=== PATIENT | male | born 1965 | race African-American/Black ===

== ENCOUNTER 2017-11-30 09:32 | Inpatient (IN) | payer OTHER ==
[2017-11-30 10:16] VITALS: BMI 27.2
--- NOTE | 2017-11-30 11:22 | HP ---
CIWA Score - CIWA Score Nausea/Vomitin-No Nausea/No Vomiting Muscle Tremors: 4-Moderate,w/Arms Extend Anxiety: 4-Mod. Anxious/Guarded Agitation: 4-Moderately Restless Paroxysmal Sweats: 3 Orientation: 0-Oriented Tacttile Disturbances: 0-None Auditory Disturbances: 0-None Visual Disturbances: 0-None Headache: 0-None Present CIWA-Ar Total Score: 15 Admission ROS S - HPI Chief Complaint: I was clean for a while until I relapsed and starting drinking a fifth of vodka daily. I need help. Allergies/Adverse Reactions: Allergies Allergy/AdvReac Type Severity Reaction Status Date / Time No Known Allergies Allergy Verified 11/30/17 10:32 History of Present Illness: pt is a 52yr old male with a history of alcohol dependence seeking detox for treatment. Pt had sober for 7months until a month ago when he relapsed. Exam Limitations: No Limitations - Ebola screening Have you traveled outside of the country in the last 21 days: No Have you had contact with anyone from an Ebola affected area: No Have you been sick,other than usual withdrawal symptoms: No - Review of Systems Constitutional: Diaphoresis, Loss of Appetite, Night Sweats, Changes in sleep, Unintentional Wgt. Loss EENT: reports: Tearing Respiratory: reports: No Symptoms reported Cardiac: reports: Syncope GI: reports: Poor Appetite, Poor Fluid Intake : reports: No Symptoms Reported Musculoskeletal: reports: No Symptoms Reported Integumentary: reports: Flushing, Sweating Neuro: reports: Tingling, Tremors Endocrine: reports: Flushing, Intolerance to Cold, Intolerance to Heat Hematology: reports: No Symptoms Reported Psychiatric: reports: Judgement Intact, Mood/Affect Appropiate, Orientated x3, Agitated, Anxious Other Systems: Reviewed and Negative Patient History - Patient Medical History Hx Anemia: No Hx Asthma: No Hx Chronic Obstructive Pulmonary Disease (COPD): No Hx Cancer: No Hx Cardiac Disorders: No Hx Congestive Heart Failure: No Hx Hypertension: Yes Hx Hypercholesterolemia: No Hx Pacemaker: No HX Cerebrovascular Accident: No Hx Seizures: No Hx Dementia: No Hx Diabetes: No Hx Gastrointestinal Disorders: No Hx Liver Disease: No Hx Genitourinary Disorders: No Hx Sexually Transmitted Disorders: No Hx Renal Disease (ESRD): No Hx Thyroid Disease: No Hx Human Immunodeficiency Virus (HIV): No (negative) Hx Hepatitis C: No (negative) Hx Depression: Yes (prozac non compliant) Hx Suicide Attempt: No Hx Bipolar Disorder: No Hx Schizophrenia: No - Patient Surgical History Past Surgical History: Yes Hx Neurologic Surgery: No Hx Cataract Extraction: No Hx Cardiac Surgery: No Hx Lung Surgery: No Hx Breast Surgery: No Hx Breast Biopsy: No Hx Abdominal Surgery: Yes (umbilical hernia at age 8) Hx Appendectomy: No Hx Cholecystectomy: No Hx Genitourinary Surgery: No Hx Section: No Hx Orthopedic Surgery: No Anesthesia Reaction: No - PPD History Previous Implant?: Yes Documented Results: Negative w/o proof Implanted On Prior R Admission?: No PPD to be Administered?: Yes - Reproductive History Patient is a Female of Child Bearing Age (11 -55 yrs old): No - Smoking Cessation Smoking history: Former smoker Have you smoked in the past 12 months: No If you are a former smoker, when did you quit?: 2016 Hx Chewing Tobacco Use: No Initiated information on smoking cessation: No 'Breaking Loose' booklet given: 11/30/17 - Substance & Tx. History Hx Alcohol Use: Yes Substance Use Type: Alcohol Hx Substance Use Treatment: Yes (last detox 1.5month ago [facility]) - Substances Abused Alcohol-vodka Route: Oral Frequency: Daily Amount used: 2 pts vodka Age of first use: 21 Date of Last Use: 11/28/17 Family Disease History - Family Disease History Family Disease History: CA: Mother (in remission), Other: Father (alcohol/ ) Admission Physical Exam [facility] - Vital Signs Vital Signs: Vital Signs - 24 hr 11/30/17 10:01 Temperature 97.7 F Pulse Rate 91 H Respiratory 18 Rate Blood Pressure 188/113 H - Physical General Appearance: Yes: Appropriately Dressed, Moderate Distress, Tremorous, Irritable, Sweating, Anxious HEENTM: Yes: Normal Voice, Nasal Congestion, Rhinorrhea Respiratory: Yes: Lungs Clear, Normal Breath Sounds, No Respiratory Distress Neck: Yes: No masses,lesions,Nodules Breast: Yes: Within Normal Limits Cardiology: Yes: Regular Rhythm, Regular Rate, S1, S2, Tachycardia Abdominal: Yes: Normal Bowel Sounds Genitourinary: Yes: Within Normal Limits Back: Yes: Normal Inspection Musculoskeletal: Yes: full range of Motion Extremities: Yes: Tremors Neurological: Yes: Fully Oriented, Alert, Normal Response Integumentary: Yes: Diaphoresis Lymphatic: Yes: Within Normal Limits - Diagnostic (1) Alcohol dependence with uncomplicated withdrawal Current Visit: Yes Status: Chronic (2) Hypertension Current Visit: Yes Status: Chronic Qualifiers: Hypertension type: essential hypertension Qualified Code(s): I10 - Essential (primary) hypertension Cleared for Admission [facility] - Detox or Rehab [facility] Level of Care: Medically Managed Detox Regimen/Protocol: Librium S Breath Alcohol Content Breath Alcohol Content: 0 Urine Drug Screen - Results Drug Screen Negative: No Urine Drug Screen Results: MDMA-Ecstasy, BZO-Benzodiazepines
[2017-11-30] MEDS ORDERED: guaiFENesin/D-METHORPHAN HB 10 ML UNIT-DOSE CUPS PO PRN (11:33)
[2017-11-30] MEDS ORDERED: MAGNESIUM CITRATE 300 ML BOTTLE PO PRN (11:33)
[2017-11-30] MEDS ORDERED: MAG HYDROX/AL HYDROX/SIMETH 30 ML UNIT-DOSE CUP PO PRN (11:33)
[2017-11-30] MEDS ORDERED: IBUPROFEN 400 MG TABLET (FP) PO PRN (11:33)
[2017-11-30] MEDS ORDERED: ACETAMINOPHEN 325 MG TABLET (FP) PO PRN (11:33)
[2017-11-30] MEDS ORDERED: hydrOXYzine PAMOATE 50 MG CAPSULE (FP) PO PRN (11:33)
[2017-11-30] MEDS ORDERED: MENTHOL/PHENOL 1 EACH UD MM PRN (11:33)
[2017-11-30] MEDS ORDERED: chlordiazePOXIDE HCL 25 MG CAPSULE PO PRN (11:33)
[2017-11-30] MEDS ORDERED: MAGNESIUM HYDROX 2400MG/30ML ORAL SUSPENSION 30 ML CUP PO PRN (11:33)
[2017-11-30] MEDS ORDERED: P-EPHED 60MG/TRIPROLIDI 2.5MG TABLET PO PRN (11:33)
[2017-11-30] MEDS ORDERED: LOPERAMIDE HCL 2 MG CAPSULE PO PRN (11:33)
[2017-11-30] MEDS ORDERED: chlordiazePOXIDE HCL 25 MG CAPSULE PO ONE (12:05)
[2017-11-30] MEDS: amLODIPine BESYLATE 10 MG TABLET (FP) PO SCH (13:09)
[2017-11-30] MEDS: hydrALAZINE HCL 50 MG TABLET (FP) PO SCH ×2 (13:55→22:02)
[2017-11-30] MEDS: chlordiazePOXIDE HCL 25 MG CAPSULE PO SCH ×2 (17:19→22:02)
[2017-11-30] MEDS ORDERED: cloNIDine HCL 0.1 MG TABLET PO ONE (17:45)
[2017-11-30] MEDS ORDERED: MELATONIN 5 MG TABLETS PO PRN (22:00)
[2017-11-30] MEDS ORDERED: PATIENT'S OWN MEDICATION (NON-FORMULARY) (Labetalol Hcl [Labetalol Hcl] 300 MG) PO SCH (22:00)
[2017-11-30] MEDS: THIAMINE HCL 100 MG TABLET (FP) PO SCH (22:02)
[2017-11-30] MEDS: LABETALOL HCL 100 MG, LABETALOL HCL 200 MG PO SCH (22:02)
[2017-12-01] MEDS: chlordiazePOXIDE HCL 25 MG CAPSULE PO SCH ×4 (06:14→22:15)
--- NOTE | 2017-12-01 08:52 | CONSULT ---
[facility] Psychiatric Consult - Data Date of interview: 12/01/17 Admission source: [facility] Identifying data: This is 52 years old male, single father of two, unemployed, homeless, with psychiatric hospitalization history, reports long history of Alcoho ddependence, reports Alcohol withdrawal symptoms and seeking detox. Denies suicidal and homicidal history. Substance Abuse History: - Smoking Cessation. Smoking history: Current every day smoker. Have you smoked in the past 12 months: Yes. Aproximately how many cigarettes per day: 20. Cigars Per Day: 0. Hx Chewing Tobacco Use: No. Initiated information on smoking cessation: Yes. 'Breaking Loose' booklet given : 11/30/17. - Substance & Tx. History. Hx Alcohol Use: Yes. Hx Substance Use : Yes. Substance Use Type: Alcohol, Tranquilizers. Hx Substance Use Treatment : Yes ([facility] detox one month ago ). - Substances Abused. Alcohol. Route: Oral. Frequency: Daily. Amount used: LIQUOR- 3 PINTS, BEER- 2 SIX PACK. Age of first use: 14. Date of Last Use: 11/30/17. Alprazolam (Xanax). Route: Oral. Frequency: Daily. Amount used: 2mg. Age of first use: 54. Date of Last Use: 11/28/17 Medical History: HTN Psychiatric History: Patient reports history of Anxiety, : that is why I am drinking Alcohol". Reports unclear psychiatric admission on 2018, one month ago at [facility]. Denies suicidal and homicidal history. Reportsm taking prior to admission: Vistaril 100mg pom bid Physical/Sexual Abuse/Trauma History: Denies Additional Comment: Vistaril 100mg pom bid Mental Status Exam - Mental Status Exam Alert and Oriented to: Person Cognitive Function: Fair Patient Appearance: Unkempt Mood: Sad Affect: Flat Patient Behavior: Sedated Speech Pattern: Delayed Voice Loudness: Mildly Soft/Quiet Thought Process: Circumstantial Thought Disorder: Being Controlled Hallucinations: Denies Suicidal Ideation: Denies Homicidal Ideation: Denies Insight/Judgement: Fair Sleep: Difficulty falling asleep Muscle strength/Tone: Moderate Hypertonicity Gait/Station: Shuffling Additional Comments: Vistaril 100mg pom bid Psychiatric Findings - Problem List ([place] 1, 2,3) (1) Alcohol-induced anxiety disorder Current Visit: Yes Status: Acute (2) Alcohol dependence with uncomplicated withdrawal Current Visit: Yes Status: Chronic (3) Hypertension Current Visit: Yes Status: Chronic Qualifiers: Hypertension type: essential hypertension Qualified Code(s): I10 - Essential (primary) hypertension - Initial Treatment Plan Initial Treatment Plan: Vistaril 100mg po bid
--- NOTE | 2017-12-01 09:52 | EKG ---
Test Reason : Blood Pressure : / mmHG Vent. Rate : 084 BPM Atrial Rate : 084 BPM P-R Int : 140 ms QRS Dur : 076 ms QT Int : 382 ms P-R-T Axes : 078 -08 030 degrees QTc Int : 451 ms NORMAL SINUS RHYTHM NORMAL ECG NO PREVIOUS ECGS AVAILABLE Confirmed by LU PYLE, ELIAS ([id number]) on 12/01/2017 9:51:55 AM Referred By: Confirmed By:ELIAS LEIGH MD
[2017-12-01 10:01] LABS: HEMATOCRIT 45.6 % (35.4-49); HEMOGLOBIN 14.7 GM/dL (11.7-16.9); MCH 25.6 pg (25.7-33.7); MCHC 32.2 g/dl (32.0-35.9); MEAN CELL VOLUME 79.6 fl (80-96); MEAN PLT VOLUME 8.2 fl (7.5-11.1); PLATELET COUNT 263 K/MM3 (134-434); RBC 5.73 M/mm3 (4.00-5.60); RDW 16.5 % (11.9-15.9); WHITE BLOOD COUNT 4.9 K/mm3 (4.0-10.0)
[2017-12-01] MEDS: PRENATAL VITAMINS W/ FOLIC ACID TABLET (FP) PO SCH (10:12)
[2017-12-01] MEDS: hydrALAZINE HCL 50 MG TABLET (FP) PO SCH ×2 (10:12→22:14)
[2017-12-01] MEDS: amLODIPine BESYLATE 10 MG TABLET (FP) PO SCH (10:13)
[2017-12-01] MEDS: LABETALOL HCL 100 MG, LABETALOL HCL 200 MG PO SCH ×2 (10:13→22:14)
[2017-12-01] MEDS: hydrOXYzine PAMOATE 50 MG CAPSULE (FP) PO SCH ×2 (10:15→22:15)
[2017-12-01 10:48] LABS: ALBUMIN 4.4 g/dl (3.4-5.0); ALK PHOS 97 U/L (45-117); ANION GAP 10 MMOL/L (8-16); BLOOD UREA NITROGEN 8 mg/dL (7-18); CALCIUM 9.5 mg/dL (8.5-10.1); CHLORIDE 99 mmol/L (98-107); CO2 25 mmol/L (21-32); GLUCOSE,RANDOM 118 mg/dL (74-106); POTASSIUM 3.9 mmol/L (3.5-5.1); SGOT/AST 46 U/L (15-37); SGPT/ALT 43 U/L (13-61); SODIUM 134 mmol/L (136-145); TOT PROT 8.6 g/dl (6.4-8.2)
--- NOTE | 2017-12-01 12:42 | PN ---
S CIWA - CIWA Score Nausea/Vomitin-Mild Nausea/No Vomiting Muscle Tremors: 4-Moderate,w/Arms Extend Anxiety: 3 Agitation: 3 Paroxysmal Sweats: 1-Minimal Palms Moist Orientation: 0-Oriented Tacttile Disturbances: 0-None Auditory Disturbances: 0-None Visual Disturbances: 0-None Headache: 0-None Present CIWA-Ar Total Score: 12 BHS Progress Note (SOAP) Subjective: sweat tremor restlessness trouble sleep at night Objective: 12/01/17 12:43 Vital Signs Temperature 96.8 F L 12/01/17 10:09 Pulse Rate 71 12/01/17 10:09 Respiratory Rate 20 12/01/17 10:09 Blood Pressure 142/83 12/01/17 10:09 O2 Sat by Pulse Oximetry (%) Laboratory Last Values WBC 4.9 K/mm3 (4.0-10.0) 12/01/17 06:00 RBC 5.73 M/mm3 (4.00-5.60) H 12/01/17 06:00 Hgb 14.7 GM/dL (11.7-16.9) 12/01/17 06:00 Hct 45.6 % (35.4-49) 12/01/17 06:00 MCV 79.6 fl (80-96) L 12/01/17 06:00 MCH 25.6 pg (25.7-33.7) L 12/01/17 06:00 MCHC 32.2 g/dl (32.0-35.9) 12/01/17 06:00 RDW 16.5 % (11.9-15.9) H 12/01/17 06:00 Plt Count 263 K/MM3 (134-434) 12/01/17 06:00 MPV 8.2 fl (7.5-11.1) 12/01/17 06:00 Sodium 134 mmol/L (136-145) L 12/01/17 06:00 Potassium 3.9 mmol/L (3.5-5.1) 12/01/17 06:00 Chloride 99 mmol/L (98-107) 12/01/17 06:00 Carbon Dioxide 25 mmol/L (21-32) 12/01/17 06:00 Anion Gap 10 MMOL/L (8-16) 12/01/17 06:00 BUN 8 mg/dL (7-18) 12/01/17 06:00 Creatinine 1.0 mg/dL (0.55-1.3) 12/01/17 06:00 Creat Clearance w eGFR > 60 (>60) 12/01/17 06:00 Random Glucose 118 mg/dL (74-106) H 12/01/17 06:00 Calcium 9.5 mg/dL (8.5-10.1) 12/01/17 06:00 Total Bilirubin 1.0 mg/dL (0.2-1) 12/01/17 06:00 AST 46 U/L (15-37) H 12/01/17 06:00 ALT 43 U/L (13-61) 12/01/17 06:00 Alkaline Phosphatase 97 U/L (45-117) 12/01/17 06:00 Total Protein 8.6 g/dl (6.4-8.2) H 12/01/17 06:00 Albumin 4.4 g/dl (3.4-5.0) 12/01/17 06:00 RPR Titer Nonreactive (NONREACTIVE) 12/01/17 06:00 lab noted Assessment: 12/01/17 12:44 withdrawal sx Plan: continue detox
[2017-12-01 14:46] LABS: URINE APPEARANCE CLEAR; URINE BILIRUBIN NEGATIVE (<2.0 mg/dL); URINE COLOR AMBER; URINE GLUCOSE (UA) NEGATIVE (NEGATIVE); URINE KETONE NEGATIVE (NEGATIVE); URINE LEUK ESTERASE NEGATIVE (NEGATIVE); URINE NITRITE NEGATIVE (NEGATIVE); URINE PROTEIN 1+ (NEGATIVE); URINE UROBILINOGEN NEGATIVE mg/dL (0.2-1.0)
[2017-12-01 15:38] LABS: EPI CELLS RARE /HPF (FEW); URINE MUCUS RARE
[2017-12-01] MEDS: THIAMINE HCL 100 MG TABLET (FP) PO SCH (22:14)
[2017-12-02] MEDS: chlordiazePOXIDE HCL 25 MG CAPSULE PO SCH ×2 (06:07→10:50)
[2017-12-02] MEDS: hydrALAZINE HCL 50 MG TABLET (FP) PO SCH ×2 (10:49→22:08)
[2017-12-02] MEDS: PRENATAL VITAMINS W/ FOLIC ACID TABLET (FP) PO SCH (10:49)
[2017-12-02] MEDS: hydrOXYzine PAMOATE 50 MG CAPSULE (FP) PO SCH ×2 (10:49→22:08)
[2017-12-02] MEDS: LABETALOL HCL 100 MG, LABETALOL HCL 200 MG PO SCH ×2 (10:49→22:07)
[2017-12-02] MEDS: amLODIPine BESYLATE 10 MG TABLET (FP) PO SCH (10:50)
--- NOTE | 2017-12-02 11:04 | PN ---
S CIWA - CIWA Score Nausea/Vomitin-No Nausea/No Vomiting Muscle Tremors: 4-Moderate,w/Arms Extend Anxiety: 2 Agitation: 2 Paroxysmal Sweats: 1-Minimal Palms Moist Orientation: 0-Oriented Tacttile Disturbances: 0-None Auditory Disturbances: 0-None Visual Disturbances: 0-None Headache: 0-None Present CIWA-Ar Total Score: 9 BHS Progress Note (SOAP) Subjective: tremor sweat anxiety restlessness trouble sleep at night Objective: 12/02/17 11:03 Vital Signs Temperature 97.9 F 12/02/17 10:49 Pulse Rate 70 12/02/17 10:49 Respiratory Rate 18 12/02/17 10:49 Blood Pressure 128/79 12/02/17 10:49 O2 Sat by Pulse Oximetry (%) Laboratory Last Values WBC 4.9 K/mm3 (4.0-10.0) 12/01/17 06:00 RBC 5.73 M/mm3 (4.00-5.60) H 12/01/17 06:00 Hgb 14.7 GM/dL (11.7-16.9) 12/01/17 06:00 Hct 45.6 % (35.4-49) 12/01/17 06:00 MCV 79.6 fl (80-96) L 12/01/17 06:00 MCH 25.6 pg (25.7-33.7) L 12/01/17 06:00 MCHC 32.2 g/dl (32.0-35.9) 12/01/17 06:00 RDW 16.5 % (11.9-15.9) H 12/01/17 06:00 Plt Count 263 K/MM3 (134-434) 12/01/17 06:00 MPV 8.2 fl (7.5-11.1) 12/01/17 06:00 Sodium 134 mmol/L (136-145) L 12/01/17 06:00 Potassium 3.9 mmol/L (3.5-5.1) 12/01/17 06:00 Chloride 99 mmol/L (98-107) 12/01/17 06:00 Carbon Dioxide 25 mmol/L (21-32) 12/01/17 06:00 Anion Gap 10 MMOL/L (8-16) 12/01/17 06:00 BUN 8 mg/dL (7-18) 12/01/17 06:00 Creatinine 1.0 mg/dL (0.55-1.3) 12/01/17 06:00 Creat Clearance w eGFR > 60 (>60) 12/01/17 06:00 Random Glucose 118 mg/dL (74-106) H 12/01/17 06:00 Calcium 9.5 mg/dL (8.5-10.1) 12/01/17 06:00 Total Bilirubin 1.0 mg/dL (0.2-1) 12/01/17 06:00 AST 46 U/L (15-37) H 12/01/17 06:00 ALT 43 U/L (13-61) 12/01/17 06:00 Alkaline Phosphatase 97 U/L (45-117) 12/01/17 06:00 Total Protein 8.6 g/dl (6.4-8.2) H 12/01/17 06:00 Albumin 4.4 g/dl (3.4-5.0) 12/01/17 06:00 Urine Color Yolanda 12/01/17 10:30 Urine Appearance Clear 12/01/17 10:30 Urine pH 6.0 (5.0-8.0) 12/01/17 10:30 Ur Specific [place] 1.024 (1.010-1.035) 12/01/17 10:30 Urine Protein 1+ (NEGATIVE) H 12/01/17 10:30 Urine Glucose (UA) Negative (NEGATIVE) 12/01/17 10:30 Urine Ketones Negative (NEGATIVE) 12/01/17 10:30 Urine Blood Negative (NEGATIVE) 12/01/17 10:30 Urine Nitrite Negative (NEGATIVE) 12/01/17 10:30 Urine Bilirubin Negative (<2.0 mg/dL) 12/01/17 10:30 Urine Urobilinogen Negative mg/dL (0.2-1.0) 12/01/17 10:30 Ur Leukocyte Esterase Negative (NEGATIVE) 12/01/17 10:30 Urine WBC (Auto) 2 /hpf (3-5) 12/01/17 10:30 Urine RBC (Auto) 1 /hpf (0-3) 12/01/17 10:30 Ur Epithelial Cells Rare /HPF (FEW) 12/01/17 10:30 Urine Mucus Rare 12/01/17 10:30 RPR Titer Nonreactive (NONREACTIVE) 12/01/17 06:00 lab noted Assessment: 12/02/17 11:04 withdrawal sx Plan: continue detox
[2017-12-02] MEDS: chlordiazePOXIDE 5 MG CAPSULE PO SCH ×2 (17:55→22:08)
[2017-12-02] MEDS: THIAMINE HCL 100 MG TABLET (FP) PO SCH (22:08)
[2017-12-03] MEDS: chlordiazePOXIDE 5 MG CAPSULE PO SCH ×2 (05:52→10:38)
[2017-12-03] MEDS: LABETALOL HCL 100 MG, LABETALOL HCL 200 MG PO SCH ×2 (10:38→22:26)
[2017-12-03] MEDS: hydrOXYzine PAMOATE 50 MG CAPSULE (FP) PO SCH ×2 (10:38→22:26)
[2017-12-03] MEDS: hydrALAZINE HCL 50 MG TABLET (FP) PO SCH ×2 (10:38→22:22)
[2017-12-03] MEDS: amLODIPine BESYLATE 10 MG TABLET (FP) PO SCH (10:39)
[2017-12-03] MEDS: PRENATAL VITAMINS W/ FOLIC ACID TABLET (FP) PO SCH (10:39)
--- NOTE | 2017-12-03 10:57 | PN ---
[facility] Progress Note Note: PATIENT PRESENTS WITH MILD ANXIETY AND HEADACHE. Vital Signs Temperature 98.9 F 12/03/17 10:05 Pulse Rate 74 12/03/17 10:05 Respiratory Rate 18 12/03/17 10:05 Blood Pressure 132/75 12/03/17 10:05 O2 Sat by Pulse Oximetry (%) Laboratory Tests 12/01/17 12/01/17 12/01/17 06:00 06:00 06:00 WBC 4.9 RBC 5.73 H Hgb 14.7 Hct 45.6 MCV 79.6 L MCH 25.6 L MCHC 32.2 RDW 16.5 H Plt Count 263 MPV 8.2 Sodium 134 L Potassium 3.9 Chloride 99 Carbon Dioxide 25 Anion Gap 10 BUN 8 Creatinine 1.0 Creat Clearance w eGFR > 60 Random Glucose 118 H Calcium 9.5 Total Bilirubin 1.0 AST 46 H ALT 43 Alkaline Phosphatase 97 Total Protein 8.6 H Albumin 4.4 Urine Color Urine Appearance Urine pH Ur Specific [place] Urine Protein Urine Glucose (UA) Urine Ketones Urine Blood Urine Nitrite Urine Bilirubin Urine Urobilinogen Ur Leukocyte Esterase Urine WBC (Auto) Urine RBC (Auto) Ur Epithelial Cells Urine Mucus RPR Titer Nonreactive 12/01/17 10:30 WBC RBC Hgb Hct MCV MCH MCHC RDW Plt Count MPV Sodium Potassium Chloride Carbon Dioxide Anion Gap BUN Creatinine Creat Clearance w eGFR Random Glucose Calcium Total Bilirubin AST ALT Alkaline Phosphatase Total Protein Albumin Urine Color Yolanda Urine Appearance Clear Urine pH 6.0 Ur Specific [place] 1.024 Urine Protein 1+ H Urine Glucose (UA) Negative Urine Ketones Negative Urine Blood Negative Urine Nitrite Negative Urine Bilirubin Negative Urine Urobilinogen Negative Ur Leukocyte Esterase Negative Urine WBC (Auto) 2 Urine RBC (Auto) 1 Ur Epithelial Cells Rare Urine Mucus Rare RPR Titer ALERT AND ORIENTED X 3 SKIN WARM AND DRY AMB AD PARDEEP EXT FULL ROM A/P WITHDRAWAL SYNDROME CONTINUE DETOX ENCOURAGE ORAL FLUIDS CONTINUE TO MONITOR CLINICALLY
[2017-12-03] MEDS: chlordiazePOXIDE HCL 10 MG CAPSULE PO SCH ×2 (18:33→22:26)
[2017-12-03] MEDS: THIAMINE HCL 100 MG TABLET (FP) PO SCH (22:27)
[2017-12-04] MEDS: chlordiazePOXIDE HCL 10 MG CAPSULE PO SCH (06:12)
--- NOTE | 2017-12-04 09:01 | DS ---
[facility] Detox Discharge Summary Admission Date: 11/30/17 Discharge Date: 12/04/17 - History Present History: Alcohol Dependence Additional Comments: Patient medically stable. Patient to follow up with primary care provider in a week. Patient to follow up with referral to [facility] rehab. If worsening symptoms are present patient to seek medical attention. - Physical Exam Results Vital Signs: Vital Signs Temperature 98.2 F 12/04/17 07:13 Pulse Rate 76 12/04/17 07:13 Respiratory Rate 18 12/04/17 07:13 Blood Pressure 121/70 12/04/17 07:13 O2 Sat by Pulse Oximetry (%) Pertinent Admission Physical Exam Findings: Vital Signs Temperature 98.4 F 12/04/17 10:18 Pulse Rate 82 12/04/17 10:18 Respiratory Rate 16 12/04/17 10:18 Blood Pressure 140/85 12/04/17 10:18 O2 Sat by Pulse Oximetry (%) Laboratory Last Values WBC 4.9 K/mm3 (4.0-10.0) 12/01/17 06:00 RBC 5.73 M/mm3 (4.00-5.60) H 12/01/17 06:00 Hgb 14.7 GM/dL (11.7-16.9) 12/01/17 06:00 Hct 45.6 % (35.4-49) 12/01/17 06:00 MCV 79.6 fl (80-96) L 12/01/17 06:00 MCH 25.6 pg (25.7-33.7) L 12/01/17 06:00 MCHC 32.2 g/dl (32.0-35.9) 12/01/17 06:00 RDW 16.5 % (11.9-15.9) H 12/01/17 06:00 Plt Count 263 K/MM3 (134-434) 12/01/17 06:00 MPV 8.2 fl (7.5-11.1) 12/01/17 06:00 Sodium 134 mmol/L (136-145) L 12/01/17 06:00 Potassium 3.9 mmol/L (3.5-5.1) 12/01/17 06:00 Chloride 99 mmol/L (98-107) 12/01/17 06:00 Carbon Dioxide 25 mmol/L (21-32) 12/01/17 06:00 Anion Gap 10 MMOL/L (8-16) 12/01/17 06:00 BUN 8 mg/dL (7-18) 12/01/17 06:00 Creatinine 1.0 mg/dL (0.55-1.3) 12/01/17 06:00 Creat Clearance w eGFR > 60 (>60) 12/01/17 06:00 Random Glucose 118 mg/dL (74-106) H 12/01/17 06:00 Calcium 9.5 mg/dL (8.5-10.1) 12/01/17 06:00 Total Bilirubin 1.0 mg/dL (0.2-1) 12/01/17 06:00 AST 46 U/L (15-37) H 12/01/17 06:00 ALT 43 U/L (13-61) 12/01/17 06:00 Alkaline Phosphatase 97 U/L (45-117) 12/01/17 06:00 Total Protein 8.6 g/dl (6.4-8.2) H 12/01/17 06:00 Albumin 4.4 g/dl (3.4-5.0) 12/01/17 06:00 Urine Color Yolanda 12/01/17 10:30 Urine Appearance Clear 12/01/17 10:30 Urine pH 6.0 (5.0-8.0) 12/01/17 10:30 Ur Specific [place] 1.024 (1.010-1.035) 12/01/17 10:30 Urine Protein 1+ (NEGATIVE) H 12/01/17 10:30 Urine Glucose (UA) Negative (NEGATIVE) 12/01/17 10:30 Urine Ketones Negative (NEGATIVE) 12/01/17 10:30 Urine Blood Negative (NEGATIVE) 12/01/17 10:30 Urine Nitrite Negative (NEGATIVE) 12/01/17 10:30 Urine Bilirubin Negative (<2.0 mg/dL) 12/01/17 10:30 Urine Urobilinogen Negative mg/dL (0.2-1.0) 12/01/17 10:30 Ur Leukocyte Esterase Negative (NEGATIVE) 12/01/17 10:30 Urine WBC (Auto) 2 /hpf (3-5) 12/01/17 10:30 Urine RBC (Auto) 1 /hpf (0-3) 12/01/17 10:30 Ur Epithelial Cells Rare /HPF (FEW) 12/01/17 10:30 Urine Mucus Rare 12/01/17 10:30 RPR Titer Nonreactive (NONREACTIVE) 12/01/17 06:00 - Treatment Hospital Course: Detox Protocol Followed, Detoxed Safely, Responded well, Discharged Condition Good, Rehab Referral Accepted Patient has Accepted a Rehab Referral to: [facility] - Medication Discharge Medications: Ambulatory Orders Hydroxyzine HCl 100 mg PO BID #60 tablet 12/01/17 Amlodipine Besylate [Norvasc -] 10 mg PO DAILY #30 tablet 12/03/17 Hydralazine HCl 100 mg PO BID #30 tablet 12/03/17 Labetalol HCl 300 mg PO BID #30 tablet 12/03/17 - Diagnosis (1) Alcohol dependence with uncomplicated withdrawal Status: Chronic (2) Hypertension Status: Chronic Qualifiers: Hypertension type: essential hypertension Qualified Code(s): I10 - Essential (primary) hypertension - AMA Did Patient Leave Against Medical Advice: No
[2017-12-04] MEDS: LABETALOL HCL 100 MG, LABETALOL HCL 200 MG PO SCH (09:39)
[2017-12-04] MEDS: hydrOXYzine PAMOATE 50 MG CAPSULE (FP) PO SCH (09:39)
[2017-12-04] MEDS: hydrALAZINE HCL 50 MG TABLET (FP) PO SCH (09:39)
[2017-12-04] MEDS: PRENATAL VITAMINS W/ FOLIC ACID TABLET (FP) PO SCH (09:39)
[2017-12-04] MEDS: amLODIPine BESYLATE 10 MG TABLET (FP) PO SCH (09:39)
[2017-12-04 10:19] VITALS: BP 140/85; PULSE 82; TEMP 98.4
== END 2017-12-04 09:55 | disposition home or self-care (01) | DRG 775 ==
LOC: YASAS 09:32 → Y6N 11:36
PROC: HZ2ZZZZ Detoxification Services for Substance Abuse Treatment (ICD-10-PCS; principal; 2017-11-30)
DX: F10.230 Alcohol dependence with withdrawal, uncomplicated (principal); F10.280 Alcohol dependence with alcohol-induced anxiety disorder; F41.9 Anxiety disorder, unspecified; F32.9 Major depressive disorder, single episode, unspecified; I10 Essential (primary) hypertension
CPT/HCPCS: 36415; 80053; 81003; 81015; 85027; 86593; 93005; 93010; J0735